=== PATIENT | female | born 1950 | race Caucasian/White ===

== ENCOUNTER 2019-01-02 08:30 | Inpatient (IN) | payer MEDICARE, OTHER ==
[~2019-01-02 08:30] MED LIST: CEFAZOLIN 1 GM/D5W RTU 1 GM/50 ML RTUPB IV ONE; CEFAZOLIN 1 GM/D5W RTU 1 GM/50 ML RTUPB IV PRN; DEXAMETHASONE SOD PHOSPHATE INJ 4 MG/1 ML VIAL ONE; FENTANYL CITRATE INJ/PF 100 MCG/2 ML AMPUL ONE; FENTANYL CITRATE INJ/PF 250 MCG/5 ML AMPULE ONE; METRONIDAZOLE 500 MG/NS RTU 500 MG/100 ML RTUPB IV ONE; METRONIDAZOLE 500 MG/NS RTU 500 MG/100 ML RTUPB IV PRN; MIDAZOLAM 2 MG/2 ML INJ ONE; ONDANSETRON HCL INJ/PF 4 MG/2 ML SDV ONE; PROPOFOL INJ 200 MG/20 ML VIAL IV ONE; SUGAMMADEX SODIUM 200 MG/2 ML SDV IV ONE
[2019-01-02] MEDS ORDERED: FAMOTIDINE INJ/PF 20 MG/2 ML SDV IV ONE (10:01)
[2019-01-02] MEDS ORDERED: METOCLOPRAMIDE HCL INJ/PF 10 MG/2 ML SDV ONE (10:03)
[2019-01-02 10:19] LABS: ABSOLUTE LYMPHOCYTES (AUTO) 1.5 10^3/uL (0.5-4.7); ABSOLUTE MONOCYTES (AUTO) 0.6 10^3/uL (0.1-1.4); ABSOLUTE NEUT (AUTO) 3.7 10^3/uL (1.7-8.2); BASOPHILS % (AUTO) 0.2 % (0-2); EOSINOPHILS % (AUTO) 0.1 % (0-6); HEMATOCRIT 37.4 % (36.0-47.0); HEMOGLOBIN 12.8 g/dL (12.0-15.5); LYMPHOCYTES % (AUTO) 26.6 % (13-45); MEAN CORPUSCULAR HEMOGLOBIN 29.4 pg (27.0-33.4); MEAN CORPUSCULAR HGB CONC 34.2 g/dL (32.0-36.0); MEAN CORPUSCULAR VOLUME 86 fl (80-97); MONOCYTES % (AUTO) 9.6 % (3-13); PLATELET COUNT 283 10^3/uL (150-450); RED BLOOD COUNT 4.36 10^6/uL (3.72-5.28); RED CELL DISTRIBUTION WIDTH 13.6 % (11.5-14.0); SEGMENTED NEUTROPHILS % (AUTO) 63.5 % (42-78); TOTAL CELLS COUNTED % (AUTO) 100 %; WHITE BLOOD COUNT 5.8 10^3/uL (4.0-10.5)
--- NOTE | 2019-01-02 10:47 | EKG REPORT ---
SEVERITY:- NORMAL ECG - SINUS RHYTHM : Confirmed by: Maira Ayers MD 02-Jan-2019 10:47:13
[2019-01-02 10:48] LABS: ANION GAP 5 (5-19); BLOOD UREA NITROGEN 13 mg/dL (7-20); CALCIUM 8.9 mg/dL (8.4-10.2); GLUCOSE 117 mg/dL (75-110); POTASSIUM 4.5 mmol/L (3.6-5.0)
[2019-01-02 10:53] LABS: CARBON DIOXIDE 32 mmol/L (22-30); CHLORIDE 103 mmol/L (98-107); SODIUM 139.6 mmol/L (137-145)
[2019-01-02] MEDS ORDERED: RINGERS SOLUTION,LACTATED 1,000 ML IV ONE (11:00)
[2019-01-02] MEDS ORDERED: BUPIVACAINE HCL 0.25% /EPINEPHRINE INJ/PF 30 ML SDV ONE (11:32)
[2019-01-02] MEDS ORDERED: MEPERIDINE HCL/PF INJ 25 MG/1 ML DISP.SYRIN IV PRN (13:06)
[2019-01-02] MEDS ORDERED: MORPHINE SULFATE 10 MG/ML INJ IV PRN (13:06)
[2019-01-02] MEDS ORDERED: PROMETHAZINE HCL INJ 25 MG/1 ML VIAL IV PRN ×2 (13:06)
[2019-01-02] MEDS ORDERED: FENTANYL CITRATE INJ/PF 100 MCG/2 ML AMPUL IV PRN ×2 (13:06)
[2019-01-02] MEDS ORDERED: ONDANSETRON HCL INJ/PF 4 MG/2 ML SDV IV PRN ×2 (13:06→14:07)
[2019-01-02] MEDS ORDERED: DIPHENHYDRAMINE HCL 50 MG/ML VIAL IV PRN (13:06)
[2019-01-02] MEDS ORDERED: SUCCINYLCHOLINE CHLORIDE INJ 200 MG/10 ML VIAL ONE (14:07)
[2019-01-02] MEDS ORDERED: ROCURONIUM BROMIDE INJ 50 MG/5 ML VIAL IV ONE (14:07)
[2019-01-02] MEDS ORDERED: GLYCOPYRROLATE 1 MG/5 ML VIAL ONE (14:07)
[2019-01-02] MEDS ORDERED: DEXTROSE 40% GEL 15 GM TUBE PO PRN ×2 (14:20)
[2019-01-02] MEDS ORDERED: GLUCAGON,HUMAN RECOMB 1 MG INJ IM PRN (14:20)
[2019-01-02] MEDS ORDERED: DEXTROSE 50%-WATER 25 GM/50 ML DISP.SYRIN IV PRN ×2 (14:20)
--- NOTE | 2019-01-02 14:23 | Operative Report ---
Operative Report DATE OF SURGERY: 01/02/19 PREOPERATIVE DIAGNOSIS: colon polyp POSTOPERATIVE DIAGNOSIS: colon polyp OPERATION: laparoscopic right hemicolectomy SURGEON: ELISABET PERALTA ANESTHESIA: GA TISSUE REMOVED OR ALTERED: right colon COMPLICATIONS: none ESTIMATED BLOOD LOSS: 50cc INTRAOPERATIVE FINDINGS: see dictaion PROCEDURE: see dictatin
[2019-01-02] MEDS: FENTANYL CITRATE INJ/PF 100 MCG/2 ML AMPUL IV PRN ×2 (14:32→14:46)
[2019-01-02] MEDS ORDERED: FENTANYL CITRATE INJ/PF 100 MCG/2 ML AMPUL ONE (14:32)
--- NOTE | 2019-01-02 15:19 | OPERATIVE REPORT E ---
Operative Report NAME: BRONWYN DAVENPORT : 1950 AGE: 68Y DATE OF SURGERY: 01/02/2019 ROOM: OR PREOPERATIVE DIAGNOSIS: RIGHT COLON POLYP. POSTOPERATIVE DIAGNOSIS: RIGHT COLON POLYP. OPERATION: LAPAROSCOPIC RIGHT HEMICOLECTOMY. SURGEON: ELISABET PERALTA M.D. PROCEDURE: The patient was brought to the operating room in awake, alert, and stable condition. Placed on the operating table in supine position and induced under general anesthesia, and intubated. The abdomen was prepped and draped in the usual sterile manner for the procedure. After appropriate timeout and site verification, a Veress needle was placed into the umbilicus and the abdomen was insufflated with 6 liters of CO2 gas. An infraumbilical 10 mm incision was made with a 15 blade, and a 10 mm port placed into the abdominal cavity. Intraabdominal visualization revealed no evidence of Veress needle or trocar injury. Two left-sided 5 mm ports were placed under direct vision and a right mid abdominal 10 mm port, all under direct vision. We turned our attention to the colon. We identified the transverse colon and the right colon. We identified the tattoo adonis on the colon, just proximal to the hepatic flexure. We lifted the transverse colon and picked a point just to the right of the middle colic vessels, and dissected the omentum off the transverse colon with the LigaSure device. We continued this around the hepatic flexure, freeing the hepatic flexure with the LigaSure device. We then freed the right colon from the peritoneal reflection on the right abdominal wall with the LigaSure device, all the way to the cecum. We mobilized the cecum off the peritoneal reflection, as also the distal ileum. Once this was all mobilized with the LigaSure device, we then created a counter incision on the right abdominal wall with a 10 blade. This was at the mid abdominal wall just above McBurney's point. A transverse incision was made as stated, and dissection carried down through subcutaneous tissue with Bovie cautery. The rectus fascia was divided transversely. The muscle was divided laterally with Bovie cautery. The posterior sheath was opened with Bovie cautery. Once this was opened, we placed an Morgan wound protector through the wound, and delivered the cecum and right colon through that. We had good mobilization and therefore we came across the terminal ileum with one firing of a FRANKY stapler. The mesentery was divided with the LigaSure device close to the origin vessels. The ileocolic vessel was also divided with the LigaSure device. We continued this up through the right colonic mesentery up to the transverse colon, just to the right of the middle colic vessel. Once the mesentery was divided, we came across the transverse colon with one firing of the FRANKY stapler, and removed the specimen. We then approximated the terminal ileum to the transverse colon and performed an ileocolostomy in two layers, the posterior layer being 3-0 silk and a running inner layer of 3-0 Vicryl, the anterior layer of 3-0 silk. We then closed the mesenteric defect with interrupted 2-0 silk. We returned the colon back to the abdominal cavity and closed the posterior sheath with a running 0 Vicryl suture. The anterior sheath was closed with a running 0 Maxon suture. We then reinsufflated the abdominal cavity and checked our anastomosis for integrity, and it was noted to be intact, untwisted, and the mesenteric defect was well closed. Hemostasis was intact. We irrigated the right side of the abdominal cavity with normal saline, suctioned dry. We laid the omentum back over the small bowel and colon, and then reduced the pneumoperitoneum. We closed the umbilical port site with 0 Vicryl in the fascia and then closed all four incisions with intracuticular 4-0 Biosyn. Steri-Strips completed the procedure. Estimated blood loss was less than 50 mL. Sponge and needle counts correct x2. The patient was awakened in the operating room, extubated, and transferred to recovery in stable condition. No complications. DICTATING PHYSICIAN: ELISABET PERALTA M.D. [id number] PHY#: [id number] ID: [id number] JOB#: [id number] ACCT: [id number] cc:ELISABET PERALTA M.D. >
[2019-01-02] MEDS: ACETAMINOPHEN INJ/PF 1000 MG/100 ML SDV IV SCH ×2 (17:59→23:33)
[2019-01-02] MEDS: INSULIN REG, HUMAN 100 UNIT/ML 3 ML VIAL (PYX) SUBCUT SCH ×2 (17:59→23:32)
[2019-01-02] MEDS: MORPHINE SULFATE 10 MG/ML INJ IV PRN (19:33)
[2019-01-02] MEDS: HEPARIN SOD (PORCINE) 5,000 UNIT/ML 1 ML SYRINGE SUBCUT SCH (21:08)
[2019-01-02] MEDS: FAMOTIDINE INJ/PF 20 MG/2 ML SDV IV SCH (21:08)
[2019-01-02] MEDS: POTASSI CL 20 MEQ/1/2NS 1L 20 MEQ/1,000 ML RTUINJ IV PRN (21:18)
[2019-01-03 04:22] LABS: ABSOLUTE LYMPHOCYTES (AUTO) 1.1 10^3/uL (0.5-4.7); ABSOLUTE MONOCYTES (AUTO) 1.2 10^3/uL (0.1-1.4); ABSOLUTE NEUT (AUTO) 10.5 10^3/uL (1.7-8.2); HEMATOCRIT 35.8 % (36.0-47.0); HEMOGLOBIN 11.9 g/dL (12.0-15.5); LYMPHOCYTES % (AUTO) 8.3 % (13-45); MEAN CORPUSCULAR HEMOGLOBIN 28.9 pg (27.0-33.4); MEAN CORPUSCULAR HGB CONC 33.2 g/dL (32.0-36.0); MEAN CORPUSCULAR VOLUME 87 fl (80-97); MONOCYTES % (AUTO) 9.3 % (3-13); PLATELET COUNT 274 10^3/uL (150-450); RED CELL DISTRIBUTION WIDTH 13.5 % (11.5-14.0); SEGMENTED NEUTROPHILS % (AUTO) 82.4 % (42-78); TOTAL CELLS COUNTED % (AUTO) 100 %
[2019-01-03 04:26] LABS: WHITE BLOOD COUNT 12.7 10^3/uL (4.0-10.5)
[2019-01-03 04:37] LABS: ANION GAP 5 (5-19); BLOOD UREA NITROGEN 15 mg/dL (7-20); CALCIUM 8.3 mg/dL (8.4-10.2); CARBON DIOXIDE 26 mmol/L (22-30); CHLORIDE 104 mmol/L (98-107); GLUCOSE 220 mg/dL (75-110); POTASSIUM 4.6 mmol/L (3.6-5.0); SODIUM 135.1 mmol/L (137-145)
[2019-01-03] MEDS: HEPARIN SOD (PORCINE) 5,000 UNIT/ML 1 ML SYRINGE SUBCUT SCH ×3 (05:41→22:55)
[2019-01-03] MEDS: MORPHINE SULFATE 10 MG/ML INJ IV PRN ×4 (05:46→22:54)
[2019-01-03] MEDS: POTASSI CL 20 MEQ/1/2NS 1L 20 MEQ/1,000 ML RTUINJ IV PRN ×2 (05:51→18:41)
[2019-01-03] MEDS: INSULIN REG, HUMAN 100 UNIT/ML 3 ML VIAL (PYX) SUBCUT SCH ×3 (05:55→18:41)
[2019-01-03] MEDS: ACETAMINOPHEN INJ/PF 1000 MG/100 ML SDV IV SCH ×2 (06:39→13:05)
--- NOTE | 2019-01-03 07:53 | PDOC PROGRESS REPORT ---
Subjective Progress Note for:: 01/03/19 Subjective:: feels ok some incisional pain Reason For Visit: COLON POLYP Physical Exam Vital Signs: Temp Pulse Resp BP Pulse Ox 99.6 F 81 16 147/44 H 92 01/02/19 21:20 01/02/19 21:20 01/02/19 21:20 01/02/19 21:20 01/02/19 21:20 Intake & Output 01/02/19 01/03/19 01/04/19 06:59 06:59 06:59 Intake Total 2655 Output Total 1635 Balance 1020 Weight 75.8 kg General appearance: PRESENT: no acute distress Head exam: PRESENT: normocephalic Eye exam: PRESENT: EOMI Ear exam: PRESENT: normal external ear exam Mouth exam: PRESENT: moist Neck exam: PRESENT: full ROM Respiratory exam: PRESENT: clear to auscultation laura Cardiovascular exam: PRESENT: RRR Pulses: PRESENT: normal radial pulses, normal femoral pulses GI/Abdominal exam: PRESENT: soft Rectal exam: PRESENT: deferred Extremities exam: PRESENT: full ROM Neurological exam: PRESENT: alert, awake, oriented to person Psychiatric exam: PRESENT: appropriate affect Skin exam: PRESENT: dry Results Laboratory Results: 01/03/19 04:01 01/03/19 04:01 01/02/19 01/02/19 01/02/19 10:09 10:09 10:09 WBC 5.8 RBC 4.36 Hgb 12.8 Hct 37.4 MCV 86 MCH 29.4 MCHC 34.2 RDW 13.6 Plt Count 283 Seg Neutrophils % 63.5 Lymphocytes % 26.6 Monocytes % 9.6 Eosinophils % 0.1 Basophils % 0.2 Absolute Neutrophils 3.7 Absolute Lymphocytes 1.5 Absolute Monocytes 0.6 Absolute Eosinophils 0.0 Absolute Basophils 0.0 Sodium 139.6 Potassium 4.5 Chloride 103 Carbon Dioxide 32 H Anion Gap 5 BUN 13 Creatinine 0.70 Est GFR ( Amer) > 60 Est GFR (Non-Af Amer) > 60 Glucose 117 H Calcium 8.9 Blood Type O POSITIVE Antibody Screen NEGATIVE 01/03/19 01/03/19 04:01 04:01 WBC 12.7 H D RBC 4.10 Hgb 11.9 L Hct 35.8 L MCV 87 MCH 28.9 MCHC 33.2 RDW 13.5 Plt Count 274 Seg Neutrophils % 82.4 H Lymphocytes % 8.3 L Monocytes % 9.3 Eosinophils % 0.0 Basophils % 0.0 Absolute Neutrophils 10.5 H Absolute Lymphocytes 1.1 Absolute Monocytes 1.2 Absolute Eosinophils 0.0 Absolute Basophils 0.0 Sodium 135.1 L Potassium 4.6 Chloride 104 Carbon Dioxide 26 Anion Gap 5 BUN 15 Creatinine 0.80 Est GFR ( Amer) > 60 Est GFR (Non-Af Amer) > 60 Glucose 220 H Calcium 8.3 L Blood Type Antibody Screen Assessment & Plan - Plan Summary Plan Summary: s/p rt lashanda colectomy' pod 1 doing well will dc luciano decrease ivf ambulate
[2019-01-03] MEDS: FAMOTIDINE INJ/PF 20 MG/2 ML SDV IV SCH ×2 (09:36→22:55)
[2019-01-03] MEDS: METHIMAZOLE 5 MG TABLET PO SCH (09:37)
[2019-01-03] MEDS ORDERED: (PENDING PHARMACY ID) (Methimazole [Methimazole] 10 MG) PO SCH (10:00)
[2019-01-03] MEDS: ACETAMINOPHEN 1,000 MG/100 ML RTUPB IV SCH (18:41)
[2019-01-04 05:15] LABS: ABSOLUTE LYMPHOCYTES (AUTO) 1.7 10^3/uL (0.5-4.7); ABSOLUTE MONOCYTES (AUTO) 0.7 10^3/uL (0.1-1.4); ABSOLUTE NEUT (AUTO) 7.1 10^3/uL (1.7-8.2); BASOPHILS % (AUTO) 0.1 % (0-2); EOSINOPHILS % (AUTO) 0.2 % (0-6); HEMATOCRIT 32.3 % (36.0-47.0); HEMOGLOBIN 10.9 g/dL (12.0-15.5); LYMPHOCYTES % (AUTO) 17.7 % (13-45); MEAN CORPUSCULAR HEMOGLOBIN 29.5 pg (27.0-33.4); MEAN CORPUSCULAR HGB CONC 33.8 g/dL (32.0-36.0); MEAN CORPUSCULAR VOLUME 87 fl (80-97); MONOCYTES % (AUTO) 7.3 % (3-13); PLATELET COUNT 208 10^3/uL (150-450); RED CELL DISTRIBUTION WIDTH 13.4 % (11.5-14.0); SEGMENTED NEUTROPHILS % (AUTO) 74.7 % (42-78); TOTAL CELLS COUNTED % (AUTO) 100 %; WHITE BLOOD COUNT 9.5 10^3/uL (4.0-10.5)
[2019-01-04] MEDS: HEPARIN SOD (PORCINE) 5,000 UNIT/ML 1 ML SYRINGE SUBCUT SCH ×3 (05:57→21:46)
[2019-01-04] MEDS: POTASSI CL 20 MEQ/1/2NS 1L 20 MEQ/1,000 ML RTUINJ IV PRN ×2 (05:57→17:12)
[2019-01-04] MEDS: ACETAMINOPHEN 1,000 MG/100 ML RTUPB IV SCH ×4 (05:58→17:12)
[2019-01-04] MEDS: MORPHINE SULFATE 10 MG/ML INJ IV PRN ×3 (05:58→15:39)
[2019-01-04 06:22] LABS: ANION GAP 5 (5-19); BLOOD UREA NITROGEN 11 mg/dL (7-20); CALCIUM 8.3 mg/dL (8.4-10.2); CARBON DIOXIDE 27 mmol/L (22-30); CHLORIDE 103 mmol/L (98-107); GLUCOSE 199 mg/dL (75-110); POTASSIUM 4.5 mmol/L (3.6-5.0); SODIUM 135.1 mmol/L (137-145)
[2019-01-04] MEDS: INSULIN REG, HUMAN 100 UNIT/ML 3 ML VIAL (PYX) SUBCUT SCH ×4 (06:35→17:54)
--- NOTE | 2019-01-04 07:39 | PDOC PROGRESS REPORT ---
Subjective Progress Note for:: 01/04/19 Subjective:: FEELS BETTER, LESS INCISIONAL PAIN Reason For Visit: COLON POLYP Physical Exam Vital Signs: Temp Pulse Resp BP Pulse Ox 99.2 F 76 16 122/36 L 92 01/04/19 00:00 01/04/19 00:00 01/04/19 00:00 01/04/19 00:00 01/04/19 00:00 Intake & Output 01/03/19 01/04/19 01/05/19 06:59 06:59 06:59 Intake Total 2655 3457 Output Total 1635 Balance 1020 3457 Weight 75.8 kg 75.8 kg General appearance: PRESENT: no acute distress Head exam: PRESENT: normocephalic Eye exam: PRESENT: EOMI Ear exam: PRESENT: normal external ear exam Mouth exam: PRESENT: dry mucosa Neck exam: PRESENT: full ROM Respiratory exam: PRESENT: clear to auscultation laura Cardiovascular exam: PRESENT: RRR Pulses: PRESENT: normal radial pulses, normal femoral pulses GI/Abdominal exam: PRESENT: soft Rectal exam: PRESENT: deferred Extremities exam: PRESENT: full ROM Musculoskeletal exam: PRESENT: full ROM Neurological exam: PRESENT: alert, awake, oriented to person, oriented to place Psychiatric exam: PRESENT: appropriate affect Skin exam: PRESENT: dry Results Laboratory Results: 01/04/19 04:39 01/04/19 04:39 01/04/19 01/04/19 04:39 04:39 WBC 9.5 RBC 3.70 L Hgb 10.9 L Hct 32.3 L MCV 87 MCH 29.5 MCHC 33.8 RDW 13.4 Plt Count 208 Seg Neutrophils % 74.7 Lymphocytes % 17.7 Monocytes % 7.3 Eosinophils % 0.2 Basophils % 0.1 Absolute Neutrophils 7.1 Absolute Lymphocytes 1.7 Absolute Monocytes 0.7 Absolute Eosinophils 0.0 Absolute Basophils 0.0 Sodium 135.1 L Potassium 4.5 Chloride 103 Carbon Dioxide 27 Anion Gap 5 BUN 11 Creatinine 0.75 Est GFR ( Amer) > 60 Est GFR (Non-Af Amer) > 60 Glucose 199 H Calcium 8.3 L Assessment & Plan - Plan Summary Plan Summary: POD 2 S/P RT HEMICOLECTOMY DOING WELL STILL NO FLATUS LABS REVIEWD WILL CONT ONLY CLEARS AWAITNG RETURN OF BOWEL FUNCTION.
[2019-01-04] MEDS: METHIMAZOLE 5 MG TABLET PO SCH (10:16)
[2019-01-04] MEDS: FAMOTIDINE INJ/PF 20 MG/2 ML SDV IV SCH ×2 (10:17→21:46)
[2019-01-04] MEDS ORDERED: ONDANSETRON HCL INJ/PF 4 MG/2 ML SDV IV PRN (15:00)
[2019-01-05] MEDS: ACETAMINOPHEN 1,000 MG/100 ML RTUPB IV SCH ×4 (00:35→17:13)
[2019-01-05] MEDS: INSULIN REG, HUMAN 100 UNIT/ML 3 ML VIAL (PYX) SUBCUT SCH ×6 (00:45→22:00)
[2019-01-05] MEDS: POTASSI CL 20 MEQ/1/2NS 1L 20 MEQ/1,000 ML RTUINJ IV PRN ×2 (04:43→17:14)
[2019-01-05] MEDS: MORPHINE SULFATE 10 MG/ML INJ IV PRN ×3 (05:10→22:00)
[2019-01-05] MEDS: HEPARIN SOD (PORCINE) 5,000 UNIT/ML 1 ML SYRINGE SUBCUT SCH ×3 (05:49→21:59)
[2019-01-05 06:15] LABS: ABSOLUTE LYMPHOCYTES (AUTO) 1.1 10^3/uL (0.5-4.7); ABSOLUTE MONOCYTES (AUTO) 0.6 10^3/uL (0.1-1.4); BASOPHILS % (AUTO) 0.1 % (0-2); EOSINOPHILS % (AUTO) 0.2 % (0-6); HEMATOCRIT 33.3 % (36.0-47.0); HEMOGLOBIN 11.1 g/dL (12.0-15.5); LYMPHOCYTES % (AUTO) 11.1 % (13-45); MEAN CORPUSCULAR HEMOGLOBIN 29.2 pg (27.0-33.4); MEAN CORPUSCULAR HGB CONC 33.4 g/dL (32.0-36.0); MEAN CORPUSCULAR VOLUME 87 fl (80-97); MONOCYTES % (AUTO) 6.6 % (3-13); PLATELET COUNT 234 10^3/uL (150-450); RED BLOOD COUNT 3.81 10^6/uL (3.72-5.28); RED CELL DISTRIBUTION WIDTH 13.2 % (11.5-14.0); TOTAL CELLS COUNTED % (AUTO) 100 %; WHITE BLOOD COUNT 9.8 10^3/uL (4.0-10.5)
[2019-01-05 06:27] LABS: ANION GAP 8 (5-19); BLOOD UREA NITROGEN 10 mg/dL (7-20); CALCIUM 7.9 mg/dL (8.4-10.2); CARBON DIOXIDE 24 mmol/L (22-30); CHLORIDE 103 mmol/L (98-107); GLUCOSE 222 mg/dL (75-110); POTASSIUM 4.9 mmol/L (3.6-5.0); SODIUM 134.8 mmol/L (137-145)
--- NOTE | 2019-01-05 07:34 | PDOC PROGRESS REPORT ---
Subjective Progress Note for:: 01/05/19 Subjective:: feels well had some crampy abd pain before bm yesterdy now better Reason For Visit: COLON POLYP Physical Exam Vital Signs: Temp Pulse Resp BP Pulse Ox 100.2 F 94 18 164/57 H 93 01/04/19 23:59 01/04/19 23:59 01/04/19 23:59 01/04/19 23:59 01/04/19 23:59 Intake & Output 01/04/19 01/05/19 01/06/19 06:59 06:59 06:59 Intake Total 3457 2660 Output Total 200 Balance 3457 2460 Weight 75.8 kg 76.9 kg General appearance: PRESENT: no acute distress Eye exam: PRESENT: EOMI Ear exam: PRESENT: normal external ear exam Mouth exam: PRESENT: moist Neck exam: PRESENT: full ROM Respiratory exam: PRESENT: clear to auscultation laura Cardiovascular exam: PRESENT: RRR Pulses: PRESENT: normal radial pulses, normal femoral pulses GI/Abdominal exam: PRESENT: soft Rectal exam: PRESENT: deferred Extremities exam: PRESENT: full ROM Musculoskeletal exam: PRESENT: full ROM Neurological exam: PRESENT: alert, awake, oriented to person, oriented to place Psychiatric exam: PRESENT: appropriate affect Skin exam: PRESENT: dry Results Laboratory Results: 01/05/19 05:36 01/05/19 05:36 01/05/19 01/05/19 05:36 05:36 WBC 9.8 RBC 3.81 Hgb 11.1 L Hct 33.3 L MCV 87 MCH 29.2 MCHC 33.4 RDW 13.2 Plt Count 234 Seg Neutrophils % 82.0 H Lymphocytes % 11.1 L Monocytes % 6.6 Eosinophils % 0.2 Basophils % 0.1 Absolute Neutrophils 8.0 Absolute Lymphocytes 1.1 Absolute Monocytes 0.6 Absolute Eosinophils 0.0 Absolute Basophils 0.0 Sodium 134.8 L Potassium 4.9 Chloride 103 Carbon Dioxide 24 Anion Gap 8 BUN 10 Creatinine 0.69 Est GFR ( Amer) > 60 Est GFR (Non-Af Amer) > 60 Glucose 222 H Calcium 7.9 L Assessment & Plan - Plan Summary Plan Summary: feels better now passng stool kerri clears will advnce to full liquids prob home in 1-2 days.
[2019-01-05] MEDS: FAMOTIDINE INJ/PF 20 MG/2 ML SDV IV SCH ×2 (09:40→22:00)
[2019-01-05] MEDS: METHIMAZOLE 5 MG TABLET PO SCH (09:55)
[2019-01-06] MEDS: ACETAMINOPHEN 1,000 MG/100 ML RTUPB IV SCH ×3 (00:15→12:12)
[2019-01-06] MEDS: POTASSI CL 20 MEQ/1/2NS 1L 20 MEQ/1,000 ML RTUINJ IV PRN ×2 (04:30→16:18)
[2019-01-06] MEDS: MORPHINE SULFATE 10 MG/ML INJ IV PRN ×3 (04:34→21:22)
[2019-01-06 04:47] LABS: ABSOLUTE LYMPHOCYTES (AUTO) 1.7 10^3/uL (0.5-4.7); ABSOLUTE MONOCYTES (AUTO) 0.6 10^3/uL (0.1-1.4); EOSINOPHILS % (AUTO) 0.2 % (0-6); HEMATOCRIT 31.2 % (36.0-47.0); HEMOGLOBIN 10.6 g/dL (12.0-15.5); LYMPHOCYTES % (AUTO) 26.6 % (13-45); MEAN CORPUSCULAR HEMOGLOBIN 29.7 pg (27.0-33.4); MEAN CORPUSCULAR HGB CONC 34.1 g/dL (32.0-36.0); MEAN CORPUSCULAR VOLUME 87 fl (80-97); MONOCYTES % (AUTO) 10.2 % (3-13); PLATELET COUNT 243 10^3/uL (150-450); RED BLOOD COUNT 3.58 10^6/uL (3.72-5.28); RED CELL DISTRIBUTION WIDTH 13.2 % (11.5-14.0); TOTAL CELLS COUNTED % (AUTO) 100 %; WHITE BLOOD COUNT 6.3 10^3/uL (4.0-10.5)
[2019-01-06 05:02] LABS: ANION GAP 5 (5-19); BLOOD UREA NITROGEN 8 mg/dL (7-20); CALCIUM 7.9 mg/dL (8.4-10.2); CARBON DIOXIDE 27 mmol/L (22-30); CHLORIDE 104 mmol/L (98-107); GLUCOSE 200 mg/dL (75-110); POTASSIUM 4.6 mmol/L (3.6-5.0)
[2019-01-06] MEDS: HEPARIN SOD (PORCINE) 5,000 UNIT/ML 1 ML SYRINGE SUBCUT SCH ×3 (05:40→21:22)
[2019-01-06] MEDS: INSULIN REG, HUMAN 100 UNIT/ML 3 ML VIAL (PYX) SUBCUT SCH ×4 (08:37→21:36)
[2019-01-06] MEDS: METHIMAZOLE 5 MG TABLET PO SCH (09:40)
[2019-01-06] MEDS: FAMOTIDINE INJ/PF 20 MG/2 ML SDV IV SCH ×2 (10:32→21:22)
--- NOTE | 2019-01-06 12:32 | PDOC PROGRESS REPORT ---
Subjective Progress Note for:: 01/06/19 Subjective:: feels ok passing flatus Reason For Visit: COLON POLYP Physical Exam Vital Signs: Temp Pulse Resp BP Pulse Ox 99.3 F 72 18 132/47 H 96 01/06/19 07:47 01/06/19 07:47 01/05/19 23:23 01/06/19 07:47 01/06/19 07:47 Intake & Output 01/05/19 01/06/19 01/07/19 06:59 06:59 06:59 Intake Total 2660 3520 Output Total 200 1200 Balance 2460 2320 Weight 76.9 kg 76.5 kg General appearance: PRESENT: no acute distress Eye exam: PRESENT: EOMI Ear exam: PRESENT: normal external ear exam Mouth exam: PRESENT: moist Neck exam: PRESENT: full ROM Respiratory exam: PRESENT: clear to auscultation laura Cardiovascular exam: PRESENT: RRR Pulses: PRESENT: normal radial pulses, normal femoral pulses GI/Abdominal exam: PRESENT: soft Rectal exam: PRESENT: deferred Extremities exam: PRESENT: full ROM Musculoskeletal exam: PRESENT: full ROM Neurological exam: PRESENT: alert, awake, oriented to person, oriented to place Psychiatric exam: PRESENT: appropriate affect Skin exam: PRESENT: dry - s/p rt hemicolectomy doing well passing flatus will advnce diet. l;abs reviewed Results Laboratory Results: 01/06/19 03:51 01/06/19 03:51 01/06/19 01/06/19 03:51 03:51 WBC 6.3 RBC 3.58 L Hgb 10.6 L Hct 31.2 L MCV 87 MCH 29.7 MCHC 34.1 RDW 13.2 Plt Count 243 Seg Neutrophils % 63.0 Lymphocytes % 26.6 Monocytes % 10.2 Eosinophils % 0.2 Basophils % 0.0 Absolute Neutrophils 4.0 Absolute Lymphocytes 1.7 Absolute Monocytes 0.6 Absolute Eosinophils 0.0 Absolute Basophils 0.0 Sodium 136.0 L Potassium 4.6 Chloride 104 Carbon Dioxide 27 Anion Gap 5 BUN 8 Creatinine 0.64 Est GFR ( Amer) > 60 Est GFR (Non-Af Amer) > 60 Glucose 200 H Calcium 7.9 L
[2019-01-07] MEDS: POTASSI CL 20 MEQ/1/2NS 1L 20 MEQ/1,000 ML RTUINJ IV PRN (01:45)
[2019-01-07] MEDS: HEPARIN SOD (PORCINE) 5,000 UNIT/ML 1 ML SYRINGE SUBCUT SCH ×3 (05:30→22:33)
[2019-01-07 05:36] LABS: ABSOLUTE LYMPHOCYTES (AUTO) 1.3 10^3/uL (0.5-4.7); ABSOLUTE MONOCYTES (AUTO) 0.7 10^3/uL (0.1-1.4); ABSOLUTE NEUT (AUTO) 4.6 10^3/uL (1.7-8.2); BASOPHILS % (AUTO) 0.2 % (0-2); EOSINOPHILS % (AUTO) 0.2 % (0-6); HEMATOCRIT 32.9 % (36.0-47.0); HEMOGLOBIN 10.9 g/dL (12.0-15.5); LYMPHOCYTES % (AUTO) 19.9 % (13-45); MEAN CORPUSCULAR HEMOGLOBIN 29.1 pg (27.0-33.4); MEAN CORPUSCULAR HGB CONC 33.2 g/dL (32.0-36.0); MEAN CORPUSCULAR VOLUME 88 fl (80-97); MONOCYTES % (AUTO) 10.5 % (3-13); PLATELET COUNT 277 10^3/uL (150-450); RED BLOOD COUNT 3.75 10^6/uL (3.72-5.28); RED CELL DISTRIBUTION WIDTH 13.2 % (11.5-14.0); SEGMENTED NEUTROPHILS % (AUTO) 69.2 % (42-78); TOTAL CELLS COUNTED % (AUTO) 100 %; WHITE BLOOD COUNT 6.6 10^3/uL (4.0-10.5)
[2019-01-07 05:57] LABS: ANION GAP 6 (5-19); BLOOD UREA NITROGEN 7 mg/dL (7-20); CALCIUM 8.3 mg/dL (8.4-10.2); CARBON DIOXIDE 27 mmol/L (22-30); CHLORIDE 102 mmol/L (98-107); GLUCOSE 269 mg/dL (75-110); SODIUM 135.2 mmol/L (137-145)
[2019-01-07 05:59] LABS: POTASSIUM 5.1 mmol/L (3.6-5.0)
[2019-01-07] MEDS: MORPHINE SULFATE 10 MG/ML INJ IV PRN (06:24)
[2019-01-07] MEDS: INSULIN REG, HUMAN 100 UNIT/ML 3 ML VIAL (PYX) SUBCUT SCH ×4 (08:37→22:33)
[2019-01-07] MEDS: FAMOTIDINE INJ/PF 20 MG/2 ML SDV IV SCH (09:44)
[2019-01-07] MEDS ORDERED: BISACODYL 10 MG SUPP.RECT PR ONE (10:44)
--- NOTE | 2019-01-07 10:46 | PDOC PROGRESS REPORT ---
Subjective Reason For Visit: COLON POLYP Physical Exam Vital Signs: Temp Pulse Resp BP Pulse Ox 99.2 F 74 16 138/51 H 98 01/07/19 00:00 01/07/19 00:00 01/07/19 00:00 01/07/19 00:00 01/07/19 00:00 Intake & Output 01/06/19 01/07/19 01/08/19 06:59 06:59 06:59 Intake Total 3520 3128 Output Total 1200 Balance 2320 3128 Weight 76.5 kg 76.5 kg Results Laboratory Results: 01/07/19 05:22 01/07/19 05:22 01/07/19 01/07/19 05:22 05:22 WBC 6.6 RBC 3.75 Hgb 10.9 L Hct 32.9 L MCV 88 MCH 29.1 MCHC 33.2 RDW 13.2 Plt Count 277 Seg Neutrophils % 69.2 Lymphocytes % 19.9 Monocytes % 10.5 Eosinophils % 0.2 Basophils % 0.2 Absolute Neutrophils 4.6 Absolute Lymphocytes 1.3 Absolute Monocytes 0.7 Absolute Eosinophils 0.0 Absolute Basophils 0.0 Sodium 135.2 L Potassium 5.1 H Chloride 102 Carbon Dioxide 27 Anion Gap 6 BUN 7 Creatinine 0.60 Est GFR ( Amer) > 60 Est GFR (Non-Af Amer) > 60 Glucose 269 H Calcium 8.3 L Assessment & Plan - Plan Summary Plan Summary: afeb vss feels ok passing flatus, no stool labs reviwed will hep 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
[2019-01-07] MEDS: OXYCODONE-ACETAMINOPHEN 5-325 MG TABLET PO PRN ×2 (13:16→22:32)
[2019-01-08 04:42] LABS: ABSOLUTE LYMPHOCYTES (AUTO) 1.2 10^3/uL (0.5-4.7); ABSOLUTE MONOCYTES (AUTO) 0.7 10^3/uL (0.1-1.4); ABSOLUTE NEUT (AUTO) 4.7 10^3/uL (1.7-8.2); BASOPHILS % (AUTO) 0.3 % (0-2); EOSINOPHILS % (AUTO) 0.1 % (0-6); HEMATOCRIT 32.5 % (36.0-47.0); LYMPHOCYTES % (AUTO) 18.1 % (13-45); MEAN CORPUSCULAR HEMOGLOBIN 29.4 pg (27.0-33.4); MEAN CORPUSCULAR HGB CONC 33.8 g/dL (32.0-36.0); MEAN CORPUSCULAR VOLUME 87 fl (80-97); PLATELET COUNT 277 10^3/uL (150-450); RED BLOOD COUNT 3.74 10^6/uL (3.72-5.28); RED CELL DISTRIBUTION WIDTH 13.3 % (11.5-14.0); SEGMENTED NEUTROPHILS % (AUTO) 71.5 % (42-78); TOTAL CELLS COUNTED % (AUTO) 100 %; WHITE BLOOD COUNT 6.6 10^3/uL (4.0-10.5)
[2019-01-08 05:06] LABS: ANION GAP 6 (5-19); BLOOD UREA NITROGEN 11 mg/dL (7-20); CALCIUM 8.5 mg/dL (8.4-10.2); CARBON DIOXIDE 31 mmol/L (22-30); CHLORIDE 100 mmol/L (98-107); GLUCOSE 339 mg/dL (75-110); POTASSIUM 4.6 mmol/L (3.6-5.0)
[2019-01-08] MEDS: OXYCODONE-ACETAMINOPHEN 5-325 MG TABLET PO PRN (05:54)
[2019-01-08] MEDS: HEPARIN SOD (PORCINE) 5,000 UNIT/ML 1 ML SYRINGE SUBCUT SCH (05:55)
[2019-01-08] MEDS: INSULIN REG, HUMAN 100 UNIT/ML 3 ML VIAL (PYX) SUBCUT SCH (08:24)
[2019-01-08] MEDS ORDERED: DEXTROSE 50%-WATER 25 GM/50 ML DISP.SYRIN IV ONE (08:27)
--- NOTE | 2019-01-08 08:51 | PDOC PROGRESS REPORT ---
Subjective Progress Note for:: 01/08/19 Subjective:: feels well, passing stool kerri reg diet Reason For Visit: COLON POLYP Physical Exam Vital Signs: Temp Pulse Resp BP Pulse Ox 98.6 F 72 16 104/52 L 97 01/08/19 07:33 01/08/19 07:33 01/08/19 07:33 01/08/19 07:33 01/08/19 07:33 Intake & Output 01/07/19 01/08/19 01/09/19 06:59 06:59 06:59 Intake Total 3122047 Balance 3122047 Weight 76.5 kg 76.5 kg General appearance: PRESENT: no acute distress Eye exam: PRESENT: EOMI Mouth exam: PRESENT: moist Neck exam: PRESENT: full ROM Respiratory exam: PRESENT: clear to auscultation laura Cardiovascular exam: PRESENT: RRR Pulses: PRESENT: normal radial pulses, normal femoral pulses GI/Abdominal exam: PRESENT: soft Rectal exam: PRESENT: deferred Extremities exam: PRESENT: full ROM Musculoskeletal exam: PRESENT: full ROM Neurological exam: PRESENT: alert, awake, oriented to person, oriented to place Psychiatric exam: PRESENT: appropriate affect Skin exam: PRESENT: dry - s/p rt hemicolectomy for polyp path pending pt now kerri po with return of bowel function will dc home today. Results Laboratory Results: 01/08/19 03:54 01/08/19 03:54 01/08/19 01/08/19 03:54 03:54 WBC 6.6 RBC 3.74 Hgb 11.0 L Hct 32.5 L MCV 87 MCH 29.4 MCHC 33.8 RDW 13.3 Plt Count 277 Seg Neutrophils % 71.5 Lymphocytes % 18.1 Monocytes % 10.0 Eosinophils % 0.1 Basophils % 0.3 Absolute Neutrophils 4.7 Absolute Lymphocytes 1.2 Absolute Monocytes 0.7 Absolute Eosinophils 0.0 Absolute Basophils 0.0 Sodium 137.0 Potassium 4.6 Chloride 100 Carbon Dioxide 31 H Anion Gap 6 BUN 11 Creatinine 0.60 Est GFR ( Amer) > 60 Est GFR (Non-Af Amer) > 60 Glucose 339 H Calcium 8.5
--- NOTE | 2019-01-08 09:29 | DISCHARGE SUMMARY E ---
Discharge Summary NAME: BRONWYN DAVENPORT : 1950 AGE: 68Y ADMITTED: 01/02/2019 DISCHARGED: 01/08/2019 ADMISSION DIAGNOSIS: RIGHT COLONIC POLYPS. DISCHARGE DIANOSIS: RIGHT COLONIC POLYP. OPERATIVE PROCEDURE: Laparoscopic right hemicolectomy. REASON FOR HOSPITALIZATION/HOSPITAL COURSE: This is a 68-year-old female who was admitted to the hospital for elective right hemicolectomy for a right colonic polyp that was unable to be resected endoscopically. She underwent a laparoscopic right hemicolectomy on the day of admission and tolerated it well. She had a benign postop course. She was initially started on clear liquid diet which was slowly advanced to a regular diet. By the time of discharge she was afebrile with stable vital signs. She was tolerating a regular diet and having normal bowel movements and normal return of bowel function. Today, her wound is clean and dry and she is ready for discharge home. DISCHARGE MEDICATIONS: Percocet 10/325 1 p.o. q. 6 p.r.n. pain. FOLLOW UP: She will be given a follow up appointment with pa 7 to 10 days after discharge. She is instructed not to lift anything greater than 5 to 10 pounds for the next 4 to 6 weeks. She may shower and she may drive 2 days after discharge. FINAL DIAGNOSIS: RIGHT COLONIC POLYP. PATHOLOGY IS STILL PENDING. DICTATING PHYSICIAN: ELISABET PERALTA M.D. [id number] PHY#: [id number] ID: [id number] JOB#: [id number] ACCT: [id number] cc:ELISABET PERALTA M.D. >
[2019-01-08] MEDS: METHIMAZOLE 5 MG TABLET PO SCH (09:45)
[2019-01-08 10:05] VITALS: BP 136/42
== END 2019-01-08 10:39 | disposition home or self-care (01) | DRG 331 ==
LOC: INOR 09:07 → 5 15:57
PROVIDERS: ADMIT Surgery; ATTEND Surgery
PROC: 0DTF4ZZ Resection of Right Large Intestine, Percutaneous Endoscopic Approach (ICD-10-PCS; principal; 2019-01-02 11:15)
DX: K63.5 Polyp of colon (principal); Z80.0 Family history of malignant neoplasm of digestive organs; E11.9 Type 2 diabetes mellitus without complications; I10 Essential (primary) hypertension; Z79.4 Long term (current) use of insulin
CPT/HCPCS: 36415; 790; 80048; 82962; 85025; 86850; 86900; 86901; 88309; 93005; 93010; J0131; J0330; J0690; J1100; J1644; J1815; J2250; J2270; J2405; J2704; J2765; J3010; J3480; J3490; S0028